=== PATIENT | female | born 1980 | race Caucasian/White ===

== ENCOUNTER → 2020-08-30 08:06 | Outpatient (BNVA) | payer BC, SELFPAY | PROVIDERS: PCP Internal Medicine; Visit Provider Physician Assistant ==

== ENCOUNTER → 2020-09-20 09:33 | Outpatient (BNVA) | payer BC, SELFPAY | PROVIDERS: PCP Internal Medicine; Visit Provider Surgery ==

== ENCOUNTER 2020-09-28 08:56 | Outpatient (REF) | payer BC, SELFPAY ==
[2020-09-29 15:12] LABS: H Pylori Breath Test NOT DETECTED (NOT DETECTED)
== END 2020-09-28 08:57 | disposition home or self-care (01) ==
LOC: HO.LNP 08:56
PROVIDERS: PCP Internal Medicine; Visit Provider Physician Assistant
DX: E66.01 Morbid (severe) obesity due to excess calories (principal); Z68.41 Body mass index [BMI] 40.0-44.9, adult; Z11.0 Encounter for screening for intestinal infectious diseases
CPT/HCPCS: 83013

== ENCOUNTER → 2020-10-04 08:07 | Outpatient (BNVA) | payer BC, SELFPAY | PROVIDERS: PCP Internal Medicine; Visit Provider Dietitian, Registered | DX: E66.9 Obesity, unspecified (principal); Z68.37 Body mass index [BMI] 37.0-37.9, adult | CPT/HCPCS: 97802 ==

== ENCOUNTER → 2020-10-11 10:45 | Outpatient (BNVA) | payer BC, SELFPAY | PROVIDERS: PCP Internal Medicine; Visit Provider Surgery ==

== ENCOUNTER 2020-10-25 08:43 | Outpatient (REF) | payer BC, SELFPAY ==
--- NOTE | 2020-10-25 08:48 | ECG_ITS ---
Test Reason : R06.02 SOB Blood Pressure : / mmHG Vent. Rate : 060 BPM Atrial Rate : 060 BPM P-R Int : 134 ms QRS Dur : 078 ms QT Int : 400 ms P-R-T Axes : 048 025 026 degrees QTc Int : 400 ms Normal sinus rhythm Normal ECG No previous ECGs available Referred By: Aliza Salinas Electronically Signed By:GER RODRIGUES
[2020-10-25 09:48] LABS: MANUAL DIFF FLAG NO
[2020-10-25 09:52] LABS: Basophils Absolute Auto 0.1 X10*3/uL (0.0-0.2); Eosinophils Absolute Auto 0.6 X10*3/uL (0.0-0.4); Eosinophils Percent Auto 11.5 % (0-4); Hemoglobin 13.2 g/dl (12.0-16.0); Imm Gran Abs Auto 0.01 X10*3/uL (0.00-0.03); Imm Gran Pct Auto 0.2 % (0.0-0.4); Lymphocytes Percent Auto 20.8 % (20-40); Mean Corpuscular HGB Conc 32.2 g/dl (31.0-35.0); Mean Corpuscular Hemoglobin 29.7 pg (27.0-33.0); Mean Corpuscular Volume 92.3 fL (80-98); Mean Platelet Volume 11.4 fL (9.4-12.3); Monocytes Absolute Auto 0.5 X10*3/uL (0.1-1.2); Monocytes Percent Auto 10.6 % (2-11); Neutrophils Absolute Auto 2.7 X10*3/uL (2.0-8.3); Neutrophils Percent Auto 55.9 % (45-73); Platelet Count 235 X10*3/uL (160-400); Red Blood Count 4.44 X10*6/uL (4.20-5.50); Red Cell Distribution Width 12.6 % (11.0-16.0); White Blood Count 4.8 X10*3/uL (4.8-10.8)
[2020-10-25 09:59] LABS: Estimated Average Glucose 100 mg/dL; Hemoglobin A1c % 5.1 %
[2020-10-25 10:13] LABS: Alanine Aminotransferase 13 U/L (0-31); Albumin Level 3.8 g/dL (3.5-5.0); Alkaline Phosphatase 45 U/L (39-117); Anion Gap 11 (12-20); Aspartate Amino Transferase 13 U/L (5-31); Bilirubin Total 0.4 mg/dL (0.0-1.0); Blood Urea Nitrogen 13 mg/dL (9-16); Carbon Dioxide 26 mmol/L (22-29); Chloride 108 mmol/L (96-108); Cholesterol 133 mg/dL; Estimated Glomerular Filt Rate > 60; Glucose Fasting 89 mg/dL (60-99); HDL Cholesterol 52 mg/dL; Iron 68 mcg/dL (30-160); LDL Cholesterol Calculated 71 mg/dl; Percent Iron Saturation 22 % (15-50); Potassium 4.7 mmol/L (3.3-5.1); Sodium 140 mmol/L (135-145); Total Iron Binding Capacity 305 mcg/dL (228-428); Total Protein 6.6 g/dL (6.5-8.0); Triglycerides 54 mg/dL; Unsaturated Iron Binding 237 ug/dL
[2020-10-25 10:36] LABS: Ferritin 23 ng/mL (10-250); TSH reflex Free T4 1.42 uIU/mL (0.32-4.0); Vitamin D 25-OH Total 29.5 ng/mL (>30)
[2020-10-25 11:35] LABS: Folate 4.2 ng/mL (> or = 4.0); Vitamin B12 272 pg/mL (200-900)
[2020-10-26 07:07] LABS: Insulin Level Total 9.3 uIU/mL
[2020-10-27 10:36] LABS: Calcium (PTHI) 9.1 mg/dL (8.6-10.2); PTHI 45 pg/mL (14-64)
[2020-10-28 17:27] LABS: Zinc 73 mcg/dL (60-130)
[2020-10-30 15:12] LABS: Vitamin B1 13 nmol/L (8-30)
[2020-10-31 12:52] LABS: Vitamin A 40 mcg/dL (38-98)
== END 2020-10-25 08:44 | disposition home or self-care (01) ==
LOC: HO.LAB 08:43
PROVIDERS: PCP Internal Medicine; Visit Provider Physician Assistant
DX: R06.02 Shortness of breath (principal); E66.01 Morbid (severe) obesity due to excess calories; Z68.41 Body mass index [BMI] 40.0-44.9, adult
CPT/HCPCS: 36415; 80053; 80061; 82306; 82607; 82728; 82746; 83036; 83525; 83540; 83970; 84425; 84443; 84590; 84630; 85025; 86140; 93005

== ENCOUNTER → 2020-11-27 13:02 | Outpatient (BNVA) | payer BC, SELFPAY | PROVIDERS: PCP Internal Medicine; Referring Provider Internal Medicine; Visit Provider Surgery ==

== ENCOUNTER 2020-12-10 09:22 | Outpatient (REF) | payer BC, SELFPAY ==
--- NOTE | ~2020-12-10 | XR_ITS ---
EXAMINATION: XR CHEST CLINICAL INFORMATION: Shortness of breath. COMPARISON: None TECHNIQUE: 2 views of the chest were obtained. FINDINGS: No significant abnormality is noted involving the heart, lungs, mediastinum, bony thorax or soft tissues. XR/XR chest 2V IMPRESSION: Unremarkable chest exam.
== END 2020-12-10 09:23 | disposition home or self-care (01) ==
LOC: HO.XRAY 09:22
PROVIDERS: PCP Internal Medicine; Visit Provider Physician Assistant
DX: R06.02 Shortness of breath (principal)
CPT/HCPCS: 71046

== ENCOUNTER → 2020-12-14 09:49 | Outpatient (BNVA) | payer BC, SELFPAY | PROVIDERS: PCP Internal Medicine; Referring Provider Internal Medicine; Visit Provider Surgery ==

== ENCOUNTER → 2021-01-04 13:21 | Outpatient (BNVA) | payer BC, SELFPAY | PROVIDERS: PCP Internal Medicine; Referring Provider Internal Medicine; Visit Provider Physician Assistant ==

== ENCOUNTER → 2021-01-07 12:55 | Outpatient (BNVA) | payer BC, SELFPAY | PROVIDERS: PCP Internal Medicine; Referring Provider Internal Medicine; Visit Provider Surgery | DX: Z01.818 Encounter for other preprocedural examination (principal); R06.02 Shortness of breath ==

== ENCOUNTER 2021-01-17 09:42 | Inpatient (IN) | payer BC, SELFPAY ==
[2021-01-02 14:12] VITALS: BMI 35.5
--- NOTE | 2021-01-07 13:57 | ECG_ITS ---
Test Reason : SOB Blood Pressure : / mmHG Vent. Rate : 063 BPM Atrial Rate : 063 BPM P-R Int : 122 ms QRS Dur : 082 ms QT Int : 420 ms P-R-T Axes : 000 023 020 degrees QTc Int : 429 ms Normal sinus rhythm Normal ECG When compared with ECG of 25-OCT-2020 08:55, No significant change was found Referred By: Betty Jones Electronically Signed By:VEE NEGRON MD
[2021-01-07 14:20] LABS: MANUAL DIFF FLAG NO
[2021-01-07 14:22] LABS: Basophils Percent Auto 0.8 % (0-2); Eosinophils Absolute Auto 0.2 X10*3/uL (0.0-0.4); Eosinophils Percent Auto 3.3 % (0-4); Hematocrit 41.2 % (37-47); Hemoglobin 13.8 g/dl (12.0-16.0); Imm Gran Abs Auto 0.02 X10*3/uL (0.00-0.03); Imm Gran Pct Auto 0.4 % (0.0-0.4); Lymphocytes Absolute Auto 1.2 X10*3/uL (1.2-4.9); Lymphocytes Percent Auto 22.7 % (20-40); Mean Corpuscular HGB Conc 33.5 g/dl (31.0-35.0); Mean Corpuscular Volume 89.6 fL (80-98); Mean Platelet Volume 10.6 fL (9.4-12.3); Monocytes Absolute Auto 0.6 X10*3/uL (0.1-1.2); Monocytes Percent Auto 12.1 % (2-11); Neutrophils Absolute Auto 3.1 X10*3/uL (2.0-8.3); Neutrophils Percent Auto 60.7 % (45-73); Platelet Count 297 X10*3/uL (160-400); White Blood Count 5.1 X10*3/uL (4.8-10.8)
[2021-01-07 14:30] LABS: INTERNATIONAL NORM RATIO 1.1 (0.9-1.1)
[2021-01-07 14:33] LABS: Partial Thromboplastin Time 37.7 SEC (24.1-38.0)
[2021-01-07 14:50] LABS: Albumin Level 4.2 g/dL (3.5-5.0); Anion Gap 13 (12-20); Blood Urea Nitrogen 11 mg/dL (9-16); Calcium 9.3 mg/dL (8.4-10.2); Carbon Dioxide 25 mmol/L (22-29); Chloride 107 mmol/L (96-108); Creatinine Clr Calc Pharmacy 102.4; Estimated Glomerular Filt Rate > 60; Glucose Random 84 mg/dL (60-115); Sodium 141 mmol/L (135-145)
[2021-01-07 14:57] LABS: Glucose Urine UA NEG (NEG); Leukocyte Esterase Urine TRACE (NEG); Nitrite Urine NEG (NEG); Specific Gravity - Urine >= 1.030 (1.005-1.025); UACC Culture Trigger YES; Urine Blood 3+ (NEG); Urine Ketones >=80 MG/DL (NEG); Urine Protein TRACE MG/DL (NEG-TRACE)
[2021-01-07 14:59] LABS: Appearance Urine HAZY; Color Urine YELLOW; UPreg QC Valid YES; Urine Pregnancy NEGATIVE (NEGATIVE)
[2021-01-07 15:12] LABS: Squamous Epithelial Cell Urine 2+ /LPF
[2021-01-07 15:13] LABS: Bacteria Urine 1+ /LPF; Renal Epithelial Cells Urine 1+ /LPF
--- NOTE | 2021-01-16 09:48 | P.CONAN_ITS ---
Documented by User: Joan Chinchilla NP 01/16/21 09:50 HPI - Anesthesia Eval Consult details Narrative: 40yo F for Gastrectomy Sleeve, EGD, Poss Diaphragmatic Hernia, Poss Ventral Hernia, Poss open PMFSH Active Problems Active Problems: All Active Problems (Updated 01/07/21 @ 13:37 by Betty Jones MD) Obesity (Acute) BMI 34.0-34.9,adult (Acute) Shortness of breath (Acute) Preoperative examination (Acute) Adjustment disorder, unspecified (Acute) BMI 37.0-37.9, adult (Acute) BMI 36.0-36.9,adult (Acute) BMI over 35 (Acute) BMI 40.0-44.9, adult (Acute) Hiatal hernia (Acute) GERD (gastroesophageal reflux disease) (Acute) Morbid obesity (Acute) Past Medical History Medical History BMI 40.0-44.9, adult COVID-19 vaccine series completed GERD (gastroesophageal reflux disease) Hiatal hernia History of snoring Morbid obesity Family History Family History Father Diabetes mellitus Hypertension FH: kidney cancer Mother Hypertension Brother Hypertension Son No problems noted. Son Autism Seasonal allergies Surgical History Surgical History History of endoscopy Hx of colonoscopy Hx of LASIK Social History Social History Are you a primary daycare director to a significant other at home: No Do you presently have visiting nurse or other home services: No Alcohol intake: current Alcohol intake frequency: holidays/special occasions only Patient Tobacco Use Status: Never used Tobacco Use of substances other than those prescribed or required for medical reasons: No Have you been hit, kicked, punched, or otherwise hurt by someone within the past year? If so, by whom?: No Are you DNR?: No Advance Directives: No Advance Directives Information Provided: No Advance Directives on File: No Recently lost weight without trying: No Eating poorly because of decreased appetite: No Nutrition Risks: No Nutritional Risk Patient : No (has IUD) FDLMP: 8/3/21-spotting : No Poor oral hygiene: No (has 3 missing fillings (root canal teeth)) Meds Allergies Allergy/AdvReac Type Severity Reaction Status Date / Time prednisone [PREDNISONE] Allergy Mild itching Verified 01/17/21 10:00 (to oral form of prednisone) ibuprofen [From Advil] Allergy Swelling Verified 01/17/21 10:00 aspartame AdvReac Palpitation Verified 01/17/21 10:00 s Home Medications Medication Instructions Recorded Confirmed Last Taken Type IUD 1 ea INTRAUTERINE CONT 08/30/20 01/02/21 Unknown History fexofenadine 180 mg tablet 180 mg PO Q24H 08/30/20 01/02/21 Unknown History (Sylwia Allergy) omeprazole 20 mg capsule,delayed 20 mg PO DAILY 08/30/20 01/02/21 Unknown History release Exam Exam Date and Time: January 16, 2021 0948 Height,Weight and Vital Signs: Height 5 ft 6 in Weight 99.79 kg Pertinent Lab Results Pertinent Lab Results: Laboratory Tests 01/07/21 01/07/21 01/07/21 14:09 14:09 14:09 WBC 5.1 RBC 4.60 Hgb 13.8 Hct 41.2 MCV 89.6 MCH 30.0 MCHC 33.5 RDW 13.0 Plt Count 297 D MPV 10.6 Immature Gran % (Auto) 0.4 Neut % (Auto) 60.7 Lymph % (Auto) 22.7 [place] % (Auto) 12.1 H Eos % (Auto) 3.3 Baso % (Auto) 0.8 Lymph # (Auto) 1.2 [place] # (Auto) 0.6 Eos # (Auto) 0.2 Baso # (Auto) 0.0 Abs Immat Gran (auto) 0.02 Absolute Neuts (auto) 3.1 Absolute Nucleated RBC 0.000 Nucleated RBC % (auto) 0.0 PT 13.0 INR 1.1 APTT 37.7 Sodium Potassium Chloride Carbon Dioxide Anion Gap BUN Creatinine Estim Creat Clear Calc Estimated GFR Random Glucose Calcium Albumin Urine Color YELLOW Urine Appearance HAZY Urine pH 6.0 Ur Specific [place] >= 1.030 H Urine Protein TRACE Urine Glucose (UA) NEG Urine Ketones >=80 Urine Blood 3+ H Urine Nitrite NEG Ur Leukocyte Esterase TRACE H Urine RBC 15-29 H Urine WBC 76-150 H Ur Squamous Epith Cells 2+ Ur Renal Epithelial Cell 1+ Urine Bacteria 1+ Urine Test Blood Type Antibody Screen 01/07/21 01/07/21 01/07/21 14:09 14:09 14:09 WBC RBC Hgb Hct MCV MCH MCHC RDW Plt Count MPV Immature Gran % (Auto) Neut % (Auto) Lymph % (Auto) [place] % (Auto) Eos % (Auto) Baso % (Auto) Lymph # (Auto) [place] # (Auto) Eos # (Auto) Baso # (Auto) Abs Immat Gran (auto) Absolute Neuts (auto) Absolute Nucleated RBC Nucleated RBC % (auto) PT INR APTT Sodium 141 Potassium 4.0 Chloride 107 Carbon Dioxide 25 Anion Gap 13 BUN 11 Creatinine 0.87 Estim Creat Clear Calc 102.4 Estimated GFR > 60 Random Glucose 84 Calcium 9.3 Albumin 4.2 Urine Color Urine Appearance Urine pH Ur Specific [place] Urine Protein Urine Glucose (UA) Urine Ketones Urine Blood Urine Nitrite Ur Leukocyte Esterase Urine RBC Urine WBC Ur Squamous Epith Cells Ur Renal Epithelial Cell Urine Bacteria Urine Test NEGATIVE Blood Type B Positive Antibody Screen NEGATIVE Narrative Narrative: EKG 12/2020 Vent. Rate : 063 BPM ? ? Atrial Rate : 063 BPM ?? P-R Int : 122 ms? QRS Dur : 082 ms ? ? QT Int : 420 ms ? ? ? P-R-T Axes : 000 023 020 degrees ?? QTc Int : 429 ms ? Normal sinus rhythm Normal ECG When compared with ECG of 25-OCT-2020 08:55, No significant change was found Assessment and Plan Assessment Anesthesia Assessment: Chart Reviewed Documented by User: Lalo Shepard MD 01/17/21 10:32 [facility] Past Medical History Medical History BMI 40.0-44.9, adult COVID-19 vaccine series completed GERD (gastroesophageal reflux disease) Hiatal hernia History of snoring Morbid obesity Family History Family History Father Diabetes mellitus Hypertension FH: kidney cancer Mother Hypertension Brother Hypertension Son No problems noted. Son Autism Seasonal allergies Family history of problems with anesthesia: No Surgical History Surgical History History of endoscopy Hx of colonoscopy Hx of LASIK History of Problems with Anesthesia: No Social History Social History Are you a primary daycare director to a significant other at home: No Do you presently have visiting nurse or other home services: No Alcohol intake: current Alcohol intake frequency: holidays/special occasions only Patient Tobacco Use Status: Never used Tobacco Use of substances other than those prescribed or required for medical reasons: No Have you been hit, kicked, punched, or otherwise hurt by someone within the past year? If so, by whom?: No Are you DNR?: No Advance Directives: No Advance Directives Information Provided: No Advance Directives on File: No Recently lost weight without trying: No Eating poorly because of decreased appetite: No Nutrition Risks: No Nutritional Risk Patient : No (has IUD) FDLMP: 01/01/21-spotting : No Poor oral hygiene: No (has 3 missing fillings (root canal teeth)) Meds Allergies Allergy/AdvReac Type Severity Reaction Status Date / Time prednisone [PREDNISONE] Allergy Mild itching Verified 01/17/21 10:00 (to oral form of prednisone) ibuprofen [From Advil] Allergy Swelling Verified 01/17/21 10:00 aspartame AdvReac Palpitation Verified 01/17/21 10:00 s Home Medications Medication Instructions Recorded Confirmed Last Taken Type IUD 1 ea INTRAUTERINE CONT 08/30/20 01/02/21 Unknown History fexofenadine 180 mg tablet 180 mg PO Q24H 08/30/20 01/02/21 Unknown History (Sylwia Allergy) omeprazole 20 mg capsule,delayed 20 mg PO DAILY 08/30/20 01/02/21 Unknown History release Exam Airway Mallampati Class: II TM Dist: >3cm Neck ROM: Full Loose/Missing/Broken Teeth: No Heart: RRR Lungs: NL Assessment and Plan Assessment Anesthesia Assessment: Anesthesia Plan Discussed Final Anesthetic Review Family History of Problems with Anesthesia: No History of Problems with Anesthesia: No NPO: Yes ASA Class: II Final Preanesthetic Review: No Changes in Pt Med Stat, Meds/Allgs Chart Reviewed, Consent Obtained/Reviewed and Anes Risks/Benef Reviewed Patient Risk: Intermediate Procedure Risk: Low Anesthetic Plan Anesthetic Plan: GA Disposition: Standard PACU
[2021-01-17] VITALS (10 sets, daily range): BP systolic 93–149; BP diastolic 32–79; PULSE 67–90; RESP 15–18; TEMP 36.2–37.1; O2SAT 95–100
--- NOTE | 2021-01-17 06:34 | MHC.SHP ---
Pre-Procedural Eval Section A Date of Service: 01/17/21 Section B Chief Complaint: Obesity Allergies: Allergies Allergy/AdvReac Type Severity Reaction Status Date / Time prednisone [PREDNISONE] Allergy Mild itching Verified 01/07/21 13:21 (to oral form of prednisone) Plan I have reviewed the history and physical and performed a pertinent physical examination on my patient. No changes have occurred unless specified.
[2021-01-17] MEDS: Lactated Ringers 1,000 ML 100 ML IVCONT ×3 (10:28→21:29)
[2021-01-17 10:32] LABS: UPreg QC Valid YES; Urine Pregnancy NEGATIVE (NEGATIVE)
[2021-01-17 10:35] LABS: COVID-19 Test Negative (Negative)
[2021-01-17] MEDS: Scopolamine 1.5 MG PATCH.TD.3 TRANSDERMA (10:38)
--- NOTE | 2021-01-17 10:57 | PM.OP ---
Brief Operative Note Date of Service: 01/17/21 Pre-op diagnosis: Class 1 obesity, BMI 34.6, hiatal hernia Post-op diagnosis: other (Same and 4 cm anterior paraesophageal hernia) Procedure: Laparoscopic sleeve gastrectomy, repair of paraesophageal hernia, Kailey block, and intraoperative endoscopy Implants: covidien clarisa Surgeon: Betty Jones MD Anesthesia: GETA Was an Professional Security Officer used for this Procedure?: No Professional Security Officer: Zulma Elizalde Estimated blood loss (mL): 20 Pathology: other (Partial gastrectomy) Condition: stable Disposition: PACU
--- NOTE | 2021-01-17 11:00 | P.DS_ITS ---
DS: Providers Provider Date of Service: 01/18/21 Date of admission: 01/17/21 09:42 Date of discharge: 01/18/21 Primary care physician: Tomás Lew MD Admitting clinician: Betty Jones Attending physician on admission: Betty Jones Attending physician on discharge: Betty Jones Discharging clinician: Betty Jones DS: Diagnosis Discharge Diagnosis (1) History of repair of hiatal hernia: Status: Acute (2) Status post laparoscopic sleeve gastrectomy: Status: Acute (3) BMI 34.0-34.9,adult: Status: Acute (4) Obesity: Status: Acute DS: Medications Discharge Medications Home Medications: Home Medications Medication Instructions Recorded Confirmed IUD 1 ea INTRAUTERINE CONT 08/30/20 01/02/21 fexofenadine 180 mg tablet 180 mg PO Q24H 08/30/20 01/02/21 (Sylwia Allergy) omeprazole 20 mg capsule,delayed 20 mg PO DAILY 08/30/20 01/02/21 release Previous Rx's Medication Instructions Recorded acetaminophen 500 mg tablet 1,000 mg PO Q6H PRN #30 tab 01/15/21 (Tylenol Extra Strength) docusate sodium 100 mg capsule 100 mg PO BID #30 cap 01/15/21 (Colace) ondansetron HCl 4 mg tablet 4 mg PO Q6H PRN #30 tab 01/15/21 (Zofran) simethicone 80 mg chewable tablet 80 mg PO TID-QID PRN #30 tab 01/15/21 (Gas Relief (simethicone)) DS: Summary Hospital Course Hospital Course: This is a 40-year-old lady who came into the [facility] as a same- day admission and underwent a laparoscopic sleeve gastrectomy and paraesophageal hernia repair without event. Patient did well following the procedure and was sent to the surgical floor overnight. Patient was started on a stage II bariatric diet which she tolerated well. On postoperative day 1. The patient was noted to be doing well, her vital signs for postoperative day 1. are Within normal limits. Patient was advanced to stage III diet which she tolerated well and was discharged home. Status at Discharge Functional status at discharge: independent ambulation Time Spent with Patient Time attestation: Total time spent providing and/or coordinating discharge services: Discharge coordination time: Less than 30 minutes Quality: Stroke Does the patient have a stroke diagnosis?: No Physical Exam Vital Signs: Vital Signs: Last Vital Signs Temp 98.6 F 01/17/21 10:01 Pulse 90 01/17/21 10:01 Resp 16 01/17/21 10:01 BP 130/79 01/17/21 10:01 Pulse Ox 98 01/17/21 10:01 Body Mass Index 35.5 DS: Data Data Completed and Pending Labs on day of discharge: Laboratory Results - last 24 hr 01/17/21 01/17/21 09:55 10:00 Urine Test NEGATIVE COVID-19 (KELLY) Negative COVID-19 Clin Com See Note Discharge Plan Discharge Patient Disposition: Home, Self-Care Discharge Diagnosis: Status post sleeve gastrectomy and hiatal hernia repair Referrals: Tomás Lew MD [Primary Care Provider] - 1 Week Discharge Medications: Continued acetaminophen [Tylenol Extra Strength] 500 mg tablet 1,000 mg PO Q6H PRN (Reason: pain) Qty: 30 RF: 1 simethicone [Gas Relief (simethicone)] 80 mg tablet,chewable 80 mg PO TID-QID PRN (Reason: abdominal distention) Qty: 30 RF: 1 ondansetron HCl [Zofran] 4 mg tablet 4 mg PO Q6H PRN (Reason: nausea and vomiting) Qty: 30 RF: 1 docusate sodium [Colace] 100 mg capsule 100 mg PO BID Qty: 30 RF: 1 omeprazole 20 mg capsule,delayed release(DR/EC) 20 mg PO DAILY RF: 0 fexofenadine [Sylwia Allergy] 180 mg tablet 180 mg PO Q24H RF: 0 IUD 1 ea intrauterine CONT RF: 0 Discharge Orders: Discharge Order (Routine); Ordered 01/18/21 Ordered By: Betty Jones Diet: other Activity on Discharge: No heavy lifting Stand Alone Forms: Patient Portal Discharge page Activity Restrictions/Additional Instructions: No lifting greater than 5 lbs for the next 4 weeks. No driving within 24 hours of taking narcotic pain medications. If you do not move your bowels in the next 2 days, please take milk of magnesia over the counter or MiraLax. Please follow the post op diet and do not advance your diet until you are seen in the office in about 2 weeks. Please walk around your home every hour or two to prevent blood clots from forming in your legs. You do not need to wake from sleeping to walk. Please sleep in a bed or couch to prevent kinking at the hips and knees. Please take your incentive spirometer (your lung banquet stewardess) home with you and use it for the next few days to prevent pneumonias. You may shower, no hot tubs, baths or swimming pools. Please call the office with any questions or concerns such as increasing abdominal pain, fever, chills, shortness of breath, chest pain, leg pain or swelling, or redness or drainage from your incisions. Please stay on stage 3 diet which includes sugar free clear liquids such as ice pops and jello and broth and crystal light. Avoid all carbonation. Please drink 2-3 protein shakes with at least 20-30 grams of protein daily or 2 of the celebrate 4:1 shakes which can be purchased in our office in addition to 1 other protein shake of your choice. celebrate shakes have all of the bariatric vitamins you need if you consume these shakes. If you are drinking other protein shakes, you will need to order the bariatric vitamin Opurity chewable online, or use the celebrate bariatric vitamin and an additional celebrate calcium daily which will provide all the vitamins you need. You may take the bariatric capsule vitamin in about 1 month. Please make sure you are consuming at least 40- 60 ounces of water in addition to your 2-3 protein shakes daily. You do not need to use the medicine cups to drink year shakes or water following discharge. Just drink slowly in order to ensure that she consume all of your liquids for the day. The medicine cups were only to teach you to drink slowly. They are not required at home. Do not hesitate to contact the office with any questions. Care Plan Goals: Weight loss and achievement of a BMI of 25 Health Concerns: Obesity Plan of Treatment: Patient is status post weight loss surgery Assessment: Patient is doing well status post weight loss surgery
--- NOTE | 2021-01-17 11:03 | W.PM.OPN ---
Operative Note Operative Note Date of Service: 01/17/21 Narrative: Patient was brought into the operating room and placed on the operating room table in the supine position. General anesthesia was induced. Normal DVT prophylaxis was instituted and the patient received 2 grams of cefotetan preoperatively. The abdomen was then prepped and draped in the normal sterile fashion. A safety time-out was performed. A mixture of 1% lidocaine with epinephrine and % Marcaine plain was used to anesthetize the planned incision site in the left upper quadrant. A #11 scalpel was used to make a 5 mm left upper quadrant transverse incision through which a veress needle was placed. Three pops were heard going through the fascia. A saline drop test was used to confirm that the veress needle was intraabdominal. An optiview technique was then used to place a 5mm port in the left upper quadrant. A 5 mm 30 degree laproscope was then placed through this port and the abdominal cavity was surveyed and was normal. The patient was placed in reverse Trendelenburg positioning. A vanessa liver retractor was then placed in the subxyphoid position and it was used to hold up the left lobe of the liver to the abdominal wall. This was secured to the bed using the liver retractor maya. A ROBERTO block was then performed for pain control on the right side of the abdomen. A 5 mm port was placed in the right upper quadrant near the falciform ligament. A 12 mm port was then placed in the mid epigastrium. One additional 5 mm port was placed in the left upper quadrant just to the left of the placement of the first port. I then performed a ROBERTO block on the left side of the abdomen. Once the liver was lifted up we could easily see that there was a large paraesophageal hernia anteriorly with the gastric fundus within the chest. We cleared the phrenoesophageal ligament bilaterally circumferentially. There was no defect noted posteriorly. The right and left crura anteriorly were by about 2 cm wide and about 4 cm in length on the diaphragm. I then removed the epigastric fat pad. I reapproximated the left and right crura with a total of 3 stitches of 2-0 ethibond and a laparoscopic knot pusher. There was no residual hiatal hernia. I then opened up the angle of His. We then gained entry into the lesser sac about 4-5 cm from the pylorus. I had anesthesia place a 34 Micronesian orogastric tube into the distal antrum to use as a sizing tool for gastric pouch size. I divided the short gastric vessels up to the angle of His. We then started the creation of the gastric pouch by firing a 60 mm purple load endostapler up the stomach about 4-5 cm from the pylorus. We completed the creation of the gastric pouch using a total of 4 firings of a 60 mm purple load stapler. We had anesthesia remove the orogastric tube, then we clamped across the distal antrum using a fired 60 mm endostapler. We flattened the patient and then instilled normal saline surrounding the newly created staple line. I then performed an on-table endoscopy. I passed the gastroscopy into the posterior oropharynx and down the esophagus evaluating the esophageal mucosa which was normal. There was no evidence of hiatal hernia. I passed the gastroscope into the gastric pouch and insufflated the gastric pouch. There was healthy pink mucosa and no evidence of active bleeding. There was no evidence of leak on laparoscopy. I desufflated the gastric pouch and removed the endoscope. I removed the endostapler from the abdomen and suctioned the fluid from the left upper quadrant. I then removed the partial gastrectomy specimen through the epigastric 12 mm port site. I reapproximated the 12 mm port using a 0 maxon suture with a laparoscopic suture passer. I instilled local anesthetic into the fascial closure site and tied the suture down at a pressure of 8-10 mm of Hg. There was no residual fascial defect. We removed the liver retractor and the left upper quadrant 5 mm ports under direct visualization. There was no evidence of any active bleeding. I desufflated the abdomen through the last remaining port and removed the laparoscope and 5 mm port. We reapproximated all incisions with a 4-0 monocryl subcuticular stitch. We cleaned and dried the abdominal skin and applied dermabond skin glue. All count were correct at the end of the case. The patient was awake and in stable condition prior to extubation and transfer to the recovery room.
--- NOTE | 2021-01-17 11:04 | P.PNGS_ITS ---
Subjective Subjective Date of Service: 01/18/21 Interval history: This is a 40-year-old lady on postoperative day 1. Status post laparoscopic sleeve gastrectomy and paraesophageal hernia repair doing well. Patient is tolerating a stage III diet without difficulty. She has been up and ambulating and using incentive spirometer. Vital signs are within normal limits for postoperative day 1. Patient denies nausea or vomiting. Pain is well controlled. Patient did have some bilateral shoulder discomfort overnight which is slowly improving. Physical Exam Vital Signs: Vital Signs: Last Vital Signs Temp 98.6 F 01/17/21 10:01 Pulse 90 01/17/21 10:01 Resp 16 01/17/21 10:01 BP 130/79 01/17/21 10:01 Pulse Ox 98 01/17/21 10:01 Body Mass Index 35.5 Const: General: cooperative, healthy appearing, comfortable and no acute distress GI: Other: Abdomen is soft nondistended mild appropriate incisional tendernes s. Incisions are clean dry intact with Dermabond in place. There is no evidence of erythema or drainage or infection of the incisions. Extrem: Other: Bilateral lower extremities are warm well-perfused without edema or tenderness to palpation. Procedures Date of Service Date of Service: 01/18/21 Progress Note: A&P Assessment and plan (1) Status post laparoscopic sleeve gastrectomy: Status: Acute Assessment and Plan: This is a 40-year-old lady on postoperative day 1. Status post laparoscopic sleeve gastrectomy and paraesophageal hernia repair doing well. Patient will be discharged home today to follow up with me in 2 weeks as an outpatient. Patient will continue stage III diet until she has advanced in the office when she has a follow-up appointment. (2) History of repair of hiatal hernia: Status: Acute Fall Risk Details Current Medications: Current Medications Generic Name Dose Route Start Last Admin Trade Name Freq PRN Reason Stop Dose Admin Hydromorphone HCl 0.5 mg 01/17/21 10:32 Hydromorphone Hcl 0.5 Mg/0.5 Ml Syringe IVPUSH Q5M PRN Pain, Severe (Pain Scale 7-10) Protocol Lactated Ringer's 1,000 mls @ 100 mls/hr 01/17/21 09:45 01/17/21 10:28 Lr IVCONT 100 mls/hr .Q10H ARANZA Administration Promethazine HCl 12.5 mg/ 50.5 mls @ 202 mls/hr 01/17/21 10:32 Sodium Chloride IV ONCE PRN Nausea and Vomiting Ondansetron HCl 4 mg 01/17/21 10:32 Ondansetron Hcl 4 Mg/2 Ml Vial IVPUSH ONCE PRN Nausea and Vomiting Time Spent With Patient Time: Total time spent is greater than 50% in coordination of care (as documented) at patient's floor/unit and/or counseling patient: Time with patient: less than 15 minutes Quality Stroke Does the patient have a stroke diagnosis?: No VTE Prior VTE?: No VTE Risk Level:: Surgical - moderate VTE Device Contraindication: N/A - Device Ordered VTE Drug Contraindication: Treatment Not Indicated
[2021-01-17] MEDS: Famotidine/PF 20 MG/2 ML VIAL IVPUSH ×2 (12:40→21:20)
[2021-01-17] MEDS: Metoclopramide HCl 10 MG/2 ML VIAL IVPUSH (12:51)
[2021-01-17] MEDS: HYDROmorphone HCl 0.5 MG/0.5 ML SYRINGE IVPUSH (14:59)
[2021-01-17] MEDS: ondansetron HCL 4 MG/2 ML VIAL IVPUSH (18:09)
[2021-01-17] MEDS: 0.9 % Sodium Chloride Flush 3 ML SYRINGE IVFLUSH (21:20)
[2021-01-17] MEDS: cefoTEtan disodium 2 GM in 0.9 % Sodium Chloride 50 ML IV (23:18)
[2021-01-18 03:45] VITALS: BP 116/66; PULSE 72; RESP 16; TEMP 36.6; O2SAT 99
[2021-01-18] MEDS: ondansetron HCL 4 MG/2 ML VIAL IVPUSH (06:27)
[2021-01-18] MEDS: Lactated Ringers 1,000 ML 100 ML IVCONT (06:28)
[2021-01-18 07:32] VITALS: BP 140/79; PULSE 65; RESP 16; TEMP 36.6; O2SAT 99
--- NOTE | 2021-01-18 08:54 | MHC.CM.PN ---
pt lives c her in their home. she reports that she is independent in her care. she works a job and drives a car. her is able to help her c her needs should she have any. this will include a ride home at dc. pt denies the need for vna at dc. dc plan is home no svcs. cm to cont. to follow.
--- NOTE | 2021-01-18 09:32 | PC.NURSE ---
pt ambulatory in room and chavez. tolerating phase 2 and phase 3 bariatric diet. denies n/v
--- NOTE | 2021-01-18 12:14 | HO.POSTANES ---
Post Anesthesia Evaluation Post Anesthesia Evaluation Vital Signs: Vital Signs Temp Pulse Resp BP Pulse Ox 01/18/21 07:32 97.8 F 65 16 140/79 H 99 01/18/21 03:45 98 F 72 16 116/66 99 Anesthesia: General Endotracheal-GETA Mental Status: Awake Pain Control: Satisfactory Nausea/Vomiting: None Hydration: Adequate Anesthesia-Related Issues: No Anes. Related Issues
== END 2021-01-18 09:32 | disposition home or self-care (01) | DRG 403 ==
LOC: HO.SSSA 11:03 → HO.S3 12:37
PROVIDERS: Nurse Practitioner; Admitting Provider Surgery; PCP Internal Medicine; Visit Provider Surgery
PROC: 0DB64Z3 Excision of Stomach, Percutaneous Endoscopic Approach, Vertical (ICD-10-PCS; CPT 43845; principal; 2021-01-17 11:40)
DX: E66.8 Other obesity (principal); K44.9 Diaphragmatic hernia without obstruction or gangrene; Z20.822 Contact with and (suspected) exposure to COVID-19; Z88.6 Allergy status to analgesic agent; Z68.35 Body mass index [BMI] 35.0-35.9, adult; Z97.5 Presence of (intrauterine) contraceptive device; Z79.899 Other long term (current) drug therapy
CPT/HCPCS: 36415; 80048; 81001; 81025; 82040; 85025; 85610; 85730; 86850; 86900; 86901; 87086; 87635; 88307; 88342; 93005; 99024; C1776; J0131; J1100; J1170; J2250; J2370; J2405; J2550; J2765; J3010

== ENCOUNTER → 2021-02-07 12:39 | Outpatient (BNVA) | payer BC, SELFPAY | PROVIDERS: PCP Internal Medicine; Referring Provider Internal Medicine; Visit Provider Surgery ==

== ENCOUNTER → 2021-02-27 10:33 | Outpatient (BNVA) | payer BC, SELFPAY | PROVIDERS: PCP Internal Medicine; Visit Provider Surgery ==

== ENCOUNTER → 2021-04-11 10:57 | Outpatient (BNVA) | payer BC, SELFPAY | PROVIDERS: PCP Internal Medicine; Referring Provider Internal Medicine; Visit Provider Physician Assistant Surgical ==